=== PATIENT | male | born 1990 | race Caucasian/White ===

== ENCOUNTER 2018-05-21 16:13 | Emergency (ER) | payer OTHER ==
[~2018-05-21] VITALS: Ht 177.8 cm; Wt 90.9 kg
[2018-05-21] MEDS ORDERED: ALBUTEROL SULFATE HFA 90 MCG/PUFF 8 GM INHALER IH ONE (16:45)
[2018-05-21 17:04] VITALS: BP 129/75
== END 2018-05-21 17:07 | disposition home or self-care (01) ==
LOC: EMS 16:14
DX: J45.901 Unspecified asthma with (acute) exacerbation (principal); L03.116 Cellulitis of left lower limb; F17.210 Nicotine dependence, cigarettes, uncomplicated; F12.90 Cannabis use, unspecified, uncomplicated; F15.90 Other stimulant use, unspecified, uncomplicated; F11.90 Opioid use, unspecified, uncomplicated
CPT/HCPCS: 94640; 99406; J3535

== ENCOUNTER 2018-12-10 19:34 | Emergency (ER) | payer OTHER ==
[~2018-12-10] VITALS: Ht 177.8 cm; Wt 81.8 kg
[2018-12-10 20:51] VITALS: BP 123/71
== END 2018-12-10 21:05 | disposition home or self-care (01) ==
LOC: EMS 19:35
DX: F11.23 Opioid dependence with withdrawal (principal); R10.9 Unspecified abdominal pain; J45.909 Unspecified asthma, uncomplicated; F17.210 Nicotine dependence, cigarettes, uncomplicated; F19.90 Other psychoactive substance use, unspecified, uncomplicated